=== PATIENT | male | born 1955 | race Caucasian/White ===

== ENCOUNTER 2023-05-13 12:27 | Outpatient (REF) | payer MEDICARE, BC, SELFPAY ==
[2023-05-13 17:42] LABS: MANUAL DIFF FLAG NO
[2023-05-13 18:09] LABS: Basophils Absolute Auto 0.1 X10*3/uL (0.0-0.2); Basophils Percent Auto 0.9 % (0-2); Eosinophils Absolute Auto 0.1 X10*3/uL (0.0-0.4); Eosinophils Percent Auto 1.8 % (0-4); Hematocrit 45.7 % (42.0-52.0); Hemoglobin 15.6 g/dl (14.0-18.0); Imm Gran Abs Auto 0.03 X10*3/uL (0.00-0.03); Imm Gran Pct Auto 0.4 % (0.0-0.4); Lymphocytes Absolute Auto 1.3 X10*3/uL (1.2-4.9); Lymphocytes Percent Auto 16.1 % (20-40); Mean Corpuscular HGB Conc 34.1 g/dl (31.0-36.0); Mean Corpuscular Hemoglobin 31.9 pg (27.0-33.0); Mean Corpuscular Volume 93.5 fL (80.0-98.0); Monocytes Absolute Auto 0.6 X10*3/uL (0.1-1.2); Neutrophils Absolute Auto 5.8 x10*3/uL (2.0-8.3); Neutrophils Percent Auto 73.8 % (45-73); Platelet Count 218 X10*3/uL (160-400); Red Blood Count 4.89 X10*6/uL (4.60-5.80); Red Cell Distribution Width 13.3 % (11.0-16.0); White Blood Count 7.8 X10*3/uL (4.8-10.8)
[2023-05-13 18:51] LABS: Alanine Aminotransferase 19 U/L (0-40); Albumin Level 4.2 g/dL (3.5-5.0); Alkaline Phosphatase 87 U/L (39-117); Anion Gap 16 (12-20); Aspartate Amino Transferase 18 U/L (5-37); Bilirubin Total 0.6 mg/dL (0.0-1.0); Blood Urea Nitrogen 13 mg/dL (9-16); Carbon Dioxide 24 mmol/L (22-29); Chloride 104 mmol/L (96-108); Cholesterol 145 mg/dL; Estimated Glomerular Filt Rate > 60; Glucose Random 96 mg/dL (60-115); HDL Cholesterol 59 mg/dL; LDL Cholesterol Calculated 69 mg/dl; Potassium 4.2 mmol/L (3.3-5.1); Sodium 140 mmol/L (135-145); Total Protein 7.2 g/dL (6.5-8.0); Triglycerides 85 mg/dL
[2023-05-13 18:53] LABS: Thyroid Stimulating Hormone 2.22 uIU/mL (0.32-4.0)
[2023-05-13 19:28] LABS: Prostate Specific Antigen 0.49 ng/mL (<0.05-4.0); Vitamin B12 1101 pg/mL (200-900)
[2023-05-20 10:48] LABS: Testosterone, Total 294 ng/dL (250-1100)
== END 2023-05-13 12:28 | disposition home or self-care (01) ==
LOC: HO.MANLDS 12:27
PROVIDERS: Visit Provider Internal Medicine
DX: Z12.5 Encounter for screening for malignant neoplasm of prostate (principal); E78.00 Pure hypercholesterolemia, unspecified; R53.83 Other fatigue
CPT/HCPCS: 36415; 80053; 80061; 82607; 84153; 84403; 84443; 85025

== ENCOUNTER 2024-06-10 14:16 | Outpatient (REF) | payer MEDICARE, BC, SELFPAY ==
[2024-06-10 17:58] LABS: Anion Gap 14 (12-20); Blood Urea Nitrogen 14 mg/dL (9-16); Carbon Dioxide 26 mmol/L (22-29); Chloride 102 mmol/L (96-108); Estimated Glomerular Filt Rate > 60; Glucose Random 107 mg/dL (60-115); Potassium 3.8 mmol/L (3.3-5.1); Sodium 138 mmol/L (135-145)
== END 2024-06-10 14:17 | disposition home or self-care (01) ==
LOC: HO.MANLDS 14:16
PROVIDERS: Visit Provider Internal Medicine
DX: R60.0 Localized edema (principal)
CPT/HCPCS: 36415; 80048

== ENCOUNTER 2025-05-11 09:01 | Outpatient (REF) | payer MEDICARE, BC, SELFPAY ==
--- OUTSIDE RECORDS SUMMARY | 2025-05-11 09:18 | XMS_ITS | Data Portability ---
Author Organization [facility], Telehealth Patient Home Address [address] [place] [address] Assessment Encounter Date Assessment Date Assessment LastModified by Organization Details LastModified Time 06/10/2023 06/10/2023 [id number] [place] [id number] (STAFF DESIGN ENGINEER) [facility] MOD[facility] MUST MEET 2 OUT OF 3 ELEMENTS: PROBLEMS, DATA OR RISK ELEMENT 1: PROBLEMS ADDRESSED 1 OR MORE CHRONIC ILLNESS WITH EXACERBATION OR 2 OR MORE STABLE CHRONIC ILLNESSES OR 1 UNDIAGNOSED NEW PROBLEM OR 1 ACUTE ILLNESS W/SYMPTOMS OR 1 ACUTE COMPLICATED INJURY ELEMENT 2: DATA MUST MEET 1 OF 3 CATEGORIES CATEGORY 1: REVIEW OF PRIOR EXTERNAL NOTES, REVIEW OF RESULTS, ORDERING OF EACH TEST, ASSESSMENT REQUIRING INDEPENDENT HISTORIAN OR CATEGORY 2: INDEPENDENT INTERPRETATION OF TESTS BY ANOTHER PHYSICIAN OR SPECIALIST OR CATEGORY 3: DISCUSSION OF MGT OR TEST INTERPRETATION W/EXTERNAL PHYSICIAN OR SPECIALIST ELEMENT 3: RISK RISK OF COMPLICATIONS AND/OR MORBIDITY OR MORTALITY OF PATIENT MANAGEMENT PROVIDER MUST THOROUGHLY DOCUMENT EACH ELEMENT THAT IS COVERED Not available 06/10/2023 15:57:09 06/09/2024 06/09/2024 [id number] [place] [id number] (STAFF DESIGN ENGINEER) [facility] MODER[facility] MUST MEET 2 OUT OF 3 ELEMENTS: PROBLEMS, DATA OR RISK ELEMENT 1: PROBLEMS ADDRESSED 1 OR MORE CHRONIC ILLNESS WITH EXACERBATION OR 2 OR MORE STABLE CHRONIC ILLNESSES OR 1 UNDIAGNOSED NEW PROBLEM OR 1 ACUTE ILLNESS W/SYMPTOMS OR 1 ACUTE COMPLICATED INJURY ELEMENT 2: DATA MUST MEET 1 OF 3 CATEGORIES CATEGORY 1: REVIEW OF PRIOR EXTERNAL NOTES, REVIEW OF RESULTS, ORDERING OF EACH TEST, ASSESSMENT REQUIRING INDEPENDENT HISTORIAN OR CATEGORY 2: INDEPENDENT INTERPRETATION OF TESTS BY ANOTHER PHYSICIAN OR SPECIALIST OR CATEGORY 3: DISCUSSION OF MGT OR TEST INTERPRETATION W/EXTERNAL PHYSICIAN OR SPECIALIST ELEMENT 3: RISK RISK OF COMPLICATIONS AND/OR MORBIDITY OR MORTALITY OF PATIENT MANAGEMENT PROVIDER MUST THOROUGHLY DOCUMENT EACH ELEMENT THAT IS COVERED Not available 06/09/2024 15:09:52 07/15/2024 07/15/2024 [id number] [place] [id number] (STAFF DESIGN ENGINEER) [facility] MODERATE MUST MEET 2 OUT OF 3 ELEMENTS: PROBLEMS, DATA OR RISK ELEMENT 1: PROBLEMS ADDRESSED 1 OR MORE CHRONIC ILLNESS WITH EXACERBATION OR 2 OR MORE STABLE CHRONIC ILLNESSES OR 1 UNDIAGNOSED NEW PROBLEM OR 1 ACUTE ILLNESS W/SYMPTOMS OR 1 ACUTE COMPLICATED INJURY ELEMENT 2: DATA MUST MEET 1 OF 3 CATEGORIES CATEGORY 1: REVIEW OF PRIOR EXTERNAL NOTES, REVIEW OF RESULTS, ORDERING OF EACH TEST, ASSESSMENT REQUIRING INDEPENDENT HISTORIAN OR CATEGORY 2: INDEPENDENT INTERPRETATION OF TESTS BY ANOTHER PHYSICIAN OR SPECIALIST OR CATEGORY 3: DISCUSSION OF MGT OR TEST INTERPRETATION W/EXTERNAL PHYSICIAN OR SPECIALIST ELEMENT 3: RISK RISK OF COMPLICATIONS AND/OR MORBIDITY OR MORTALITY OF PATIENT MANAGEMENT PROVIDER MUST THOROUGHLY DOCUMENT EACH ELEMENT THAT IS COVERED Not available 07/15/2024 11:01:00 08/17/2024 08/17/2024 [id number] [place] [id number] (STAFF DESIGN ENGINEER) : MDM LOW MUST MEET 2 OF 3 ELEMENTS: PROBLEMS, DATA OR RISK ELEMENT 1: PROBLEMS ADDRESSED (LOW): 2 OR MORE SELF-LIMITED OR MINOR PROBLEMS OR 1 STABLE CHRONIC ILLNESS OR 1 ACUTE UNCOMPLICATED ILLNESS OR INJURY ELEMENT 2: DATA TO BE REVISED AND ANALYZED (LOW) MUST MEET 1 OF 2 CATEGORIES: CATEGORY 1. REVIEW OF PRIOR EXTERNAL NOTES/RESULTS, ORDERING OF TEST(S) CATEGORY 2. ASSESSMENT REQUIRING INDEPENDENT HISTORIAN(S) INCLUDE WHO THE HISTORIAN IS AND RELATION TO PT AND WHY PT IS UNABLE TO GIVE COMPLETE HISTORY ELEMENT 3: RISK (LOW) RISK OF COMPLICATIONS AND/OR MORBIDITY OR MORTALITY OF PATIENT MANAGEMENT PROVIDER MUST THOROUGHLY DOCUMENT ALL OF THE ELEMENTS COVERED Not available 08/17/2024 12:39:44 05/05/2025 05/05/2025 [id number] [place] [id number] (STAFF DESIGN ENGINEER) [facility] MODERATE MUST MEET 2 OUT OF 3 ELEMENTS: PROBLEMS, DATA OR RISK ELEMENT 1: PROBLEMS ADDRESSED 1 OR MORE CHRONIC ILLNESS WITH EXACERBATION OR 2 OR MORE STABLE CHRONIC ILLNESSES OR 1 UNDIAGNOSED NEW PROBLEM OR 1 ACUTE ILLNESS W/SYMPTOMS OR 1 ACUTE COMPLICATED INJURY ELEMENT 2: DATA MUST MEET 1 OF 3 CATEGORIES CATEGORY 1: REVIEW OF PRIOR EXTERNAL NOTES, REVIEW OF RESULTS, ORDERING OF EACH TEST, ASSESSMENT REQUIRING INDEPENDENT HISTORIAN OR CATEGORY 2: INDEPENDENT INTERPRETATION OF TESTS BY ANOTHER PHYSICIAN OR SPECIALIST OR CATEGORY 3: DISCUSSION OF MGT OR TEST INTERPRETATION W/EXTERNAL PHYSICIAN OR SPECIALIST ELEMENT 3: RISK RISK OF COMPLICATIONS AND/OR MORBIDITY OR MORTALITY OF PATIENT MANAGEMENT PROVIDER MUST THOROUGHLY DOCUMENT EACH ELEMENT THAT IS COVERED Not available 05/05/2025 11:24:35 Plan of Treatment Reminders Order Date Submit Date Provider Last Modified By Organization Details Last Modified Time Details Appointments None recorded. Lab TSH, serum or plasma 2024 025 [facility], [address] [place] [address], [address], 5 11:29:55 vitamin B12, serum 2024 025 [facility], [address] [place] [address], [address], 5 11:29:54 testostero ne, total, serum 2024 025 [facility], [address] [place] [address], [address], 5 11:29:55 CBC w/ auto diff 2024 025 [facility], [address] [place] [address], [address], 5 11:29:55 vitamin D, 25-hydroxy , total, serum 2024 025 [facility], [address] [place] [address], [address], 5 11:29:54 BMP, serum or plasma 2023 024 [facility], [address] [place] [address], [address], 4 11:15:52 Referral None recorded. Procedures nerve conduction study/EMG, lower extremity (PROC) 2023 024 cleopatra Garcia MD, [address] [place] [address], [address], 08:36:20 Surgeries None recorded. Imaging XR, lumbosacra l spine, 2 or 3 view 2023 WADE Not available 08:01:53 Medication Orders furosemide 40 mg tablet 2023 [facility] #[id number], [address], [place], [id number], 15:18:39 metoprolol succinate ER 50 mg tablet,ext ended release 24 hr 2022 [facility] #[id number], [address], [place], [id number], 14:56:24 Patient TargetsNo targets recorded. Patient Instructions Encounter Date Encounter Id Patient Instructions Last Modified By Organization Details Last Modified Time 06/10/2023 [id number] pulse oximetry* WADE Not available 06/10/2023 16:20:09 06/09/2024 [id number] leg and ankle edema: care instructions Not available 06/09/2024 15:13:10 back care and preventing injuries: care instructions Not available 06/09/2024 15:13:10 getting back to normal after low back pain: care instructions Not available 06/09/2024 15:13:10 learning about relief for back pain Not available 06/09/2024 15:13:11 07/15/2024 [id number] low back arthritis: exercises Not available 07/15/2024 11:09:19 pulse oximetry* Not available 07/15/2024 11:09:23 Reason for Referral None Reported. Results Created Date Observation Date Name Description Value Unit Range Abnormal Flag Note LastModifiedBy Organization Detail LastModifiedTime 07/15/20 24 07/15/2024 pulse oxime try* Result 96% Not Available [facility] [address], [place], [address], 07/13/2024 12:09:44 05/27/20 23 05/27/2023 XR, chest , 2 view No observ ation record ed. [facility] [address], [place], [address], 05/27/2023 23:29:10 05/27/20 23 05/27/2023 US, abdom inal aorta No observ ation record ed. [facility] [address], [place], [address], 05/27/2023 23:29:10 06/11/20 24 06/10/2024 XR, lumbo sacra l spine , 2 or 3 view No observ ation record ed. [address], [address], 06/12/2024 08:37:14 07/08/20 24 07/07/2024 MRI, lumba r spine , w/o contr ast No observ ation record ed. [email or web address] [place] [address], [place], [address], 07/09/2024 22:14:43 08/06/20 24 08/05/2024 nerve condu ction study /EMG, lower extre mity (PROC ) No observ ation record ed. [email or web address] Not Available 2023 15:13:51 Result Notes None recorded. Problems Name Problem SNOMED Code Status Onset Date Resolution Date Notes Provider Name and Address Organization Details Recorded Time Ischemic heart disease 776603551 Active 2017 5 stents total Zaire Castillo, [address], [place], [address], [place] [facility] 3 16:11:33 Hypercho lesterol emia 33131921 Active [address] [facility] 8 08:30:52 Hyperten sive disorder 44103914 Active [address] [facility] 8 08:30:56 Gastroes ophageal reflux disease 171813114 [facility] [address] [facility] 8 08:30:59 Hiatal hernia 54395680 [facility] [address] [facility] 8 08:31:03 Obstruct keeley sleep apnea syndrome 69618305 Completed 201705/09/2021 CPAP 2007 Zaire Castillo, DO [address] [place] [address], [address], [facility] 1 14:49:36 Toxic inhalati on injury 087219141 Active 2017 maikel eason, [address] 8 08:31:39 Cough 35415227 Active 2022 Zaire Castillo, DO [address] [place] [address], [address], [facility] 3 16:08:50 Fatigue 30813404 Active 2022 Zaire Castillo DO [address] [place] [address], [address], [facility] 5 11:27:09 Edema of lower extremit y 019144377 Active 2023 Zaire Castillo, [address] [place] [address], [address], [facility] 4 15:09:33 Low back pain 358262441 Active 2023 Zaire Castillo DO [address] [place] [address], [address], [facility] 4 15:12:18 Weakness of bilatera l lower limb Active 2023 Zaire Castillo DO [address] [place] [address], [address], [facility] 4 08:37:37 Degenera tion of lumbar interver tebral disc 08679106 Active 2023 Zaire Shanks Anna, DO [address] [place], [address], [facility] 5 11:23:06 Lumbar spondylo sis with myelopat hy 68037580 Active 2023 Zaire Walkerwayne, DO [address] [place], [address], [facility] 4 11:03:23 Lumbar radiculo aidee 405096982 Active 2023 Zaire Shanks Anna, DO [address] [place], [address], [facility] 4 12:37:34 Aneurysm of ascendin g aorta 341479214 Active 2024 4.2 cm Zaire Dimitris Anna, DO [address] [place] [address], [address], [facility] 5 11:18:05 Peripher al sensory neuropat 501497147 Active 2024 Zaire Walkerwayne, DO [address] [place] [address], [address], [facility] 5 21:33:04 Problem Notes None recorded. Medical Equipment None Reported. Allergies No known drug allergies Medications Name Sig Start Date Stop Date Status Note LastModified by Organization Details LastModified Time amoxicillin 500 mg capsule TAKE ONE CAPSULE BY MOUTH THREE TIMES A DAY UNTIL GONE 05/07 completed Not Available Not Available Not Available furosemide 40 mg tablet TAKE 1 TABLET BY MOUTH EVERY DAY active Not Available Not Available No t Available promethazin e-DM 6.25 mg-15 mg/5 mL oral syrup TAKE 5 ML BY MOUTH AT BEDTIME FOR 7 DAYS active Not Available Not Available No t Available gabapentin 600 mg tablet TAKE 1 TABLET BY MOUTH TWICE DAILY 05/05 completed Not Available Not Available Not Available doxycycline hyclate 100 mg capsule TAKE 1 CAPSULE BY MOUTH TWICE DAILY FOR 10 DAYS active Not Available Not Available No t Available cetirizine 10 mg tablet TAKE 1 TABLET BY MOUTH DAILY NEEDED FOR ALLERGIES FOR UP TO 30 DAYS. RECOMMEND TAKING IT IN THE MORNING NOT AT SAME TIME PROMETHAZ INE-DM. active Not Available Not Available No t Available ibuprofen 800 mg tablet TAKE ONE TABLET BY MOUTH EVERY 8 HOURS UNTIL FINISHED 05/07 completed Not Available Not Available Not Available tizanidine 4 mg tablet TAKE 1 TABLET BY MOUTH THREE TIMES DAILY NEEDED FOR MUSCLE SPASMS active Not Available Not Available No t Available benzonatate 200 mg capsule TAKE 1 CAPSULE BY MOUTH THREE TIMES DAILY FOR UP TO 10 DAYS NEEDED FOR COUGH active Not Available Not Available No t Available metoprolol succinate ER 50 mg tablet,exte nded release 24 hr TAKE 1 TABLET BY MOUTH EVERY DAY 06/09 completed Not Available Not Available Not Available hydrochloro thiazide 50 mg tablet TAKE 2 TABLETS BY MOUTH EVERY MORNING active Not Available Not Available No t Available hydrocodone 5 mg-acetamin ophen 325 mg tablet TAKE ONE TABLET BY MOUTH EVERY 4 TO 6 HOURS ONLY IN CASE OF SEVERE PAIN - DO NOT DRIVE IF TAKING THIS MEDICATIO N 05/07 completed Not Available Not Available Not Available isosorbide mononitrate ER 30 mg tablet,exte nded release 24 hr TAKE 1 TABLET BY MOUTH EVERY MORNING active Not Available Not Available No t Available penicillin V potassium 500 mg tablet 05/09 completed Not Available Not Available Not Available oxiconazole 1 % topical cream 05/09 completed Not Available Not Available Not Available clopidogrel 75 mg tablet TAKE 1 TABLET BY MOUTH DAILY active Not Available Not Available No t Available amlodipine 5 mg tablet TAKE 1 TABLET BY MOUTH TWICE DAILY active Not Available Not Available No t Available triamterene 37.5 mg-hydrochl orothiazide 25 mg capsule 05/09 completed Not Available Not Available Not Available triamcinolo ne acetonide 0.1 % topical cream 05/09 completed Not Available Not Available Not Available amoxicillin 875 mg tablet 07/18 completed Not Available Not Available Not Available fluorometho lone 0.1 % eye drops,suspe nsion SHAKE LIQUID AND INSTILL 1 DROP IN BOTH EYES TWICE DAILY FOR 1 WEEK AND DISCONTIN UE 05/07 completed Not Available Not Available Not Available gabapentin 300 mg capsule TAKE 1 CAPSULE BY MOUTH THREE TIMES DAILY 05/05 completed Not Available Not Available Not Available hydrochloro thiazide 25 mg tablet TAKE 1 TABLET BY MOUTH EVERY MORNING 06/09 completed Not Available Not Available Not Available metoprolol succinate ER 25 mg tablet,exte nded release 24 hr TAKE 1 TABLET BY MOUTH DAILY active Not Available Not Available No t Available methylpredn isolone 4 mg tablets in a dose pack FOLLOW PACKAGE DIRECTION S 06/09 completed Not Available Not Available Not Available albuterol sulfate HFA 90 mcg/actuati on aerosol inhaler INHALE 2 PUFFS INTO THE LUNGS EVERY 4 HOURS NEEDED FOR WHEEZING active Not Available Not Available No t Available diazepam 5 mg tablet TAKE 1 TABLET BY MOUTH 60 MINUTES BEFORE PROCEDURE NEEDED FOR ANXIETY. MAY REPEAT 1 TIME active Not Available Not Available No t Available amoxicillin 875 mg-potassiu m clavulanate 125 mg tablet TAKE 1 TABLET BY MOUTH TWICE DAILY CONSUME WITH FOOD AND A DAILY PROBIOTIC 06/09 completed Not Available Not Available Not Available ezetimibe 10 mg tablet TK 1 T PO Q NIGHT active Not Available Not Available No t Available rosuvastati n 40 mg tablet 07/18 completed Not Available Not Available Not Available pregabalin 75 mg capsule Take 1 capsule twice a day by oral route for 30 days. 2024 active Not Available Not Available Not Avai lable Repatha SureClick 140 mg/mL subcutaneou s pen injector ADMINISTE R 1 ML UNDER THE SKIN EVERY 14 DAYS active Not Available Not Available No t Available Vitals Date Recorded Body height Body mass index (BMI) Body weight Heart rate Oxygen saturation Oxygen saturation in Arterial blood by Pulse oximetry Systolic And Diastolic Provider Name and Address Organization Details Last Updated DateTime 5 171.45 cm 38.1 kg/m2 433572. 32 g 83 /min 98 % 98 % 130/78 mm[Hg] Samina Obrien [facility] 5 11:04:02 Date Recorded Body height Body mass index (BMI) Body weight Heart rate Oxygen saturation Oxygen saturation in Arterial blood by Pulse oximetry Systolic And Diastolic Provider Name and Address Organization Details Last Updated DateTime 4 171.45 cm 37.8 kg/m2 713526. 13 g 80 /min 98 % 98 % 128/76 mm[Hg] Zaire Castillo, DO [address] [place], [address] , [facility] 4 14:57:59 Date Recorded Body height Body mass index (BMI) Body weight Heart rate Oxygen saturation Oxygen saturation in Arterial blood by Pulse oximetry Systolic And Diastolic Provider Name and Address Organization Details Last Updated DateTime 3 171.45 cm 38.9 kg/m2 783510. 28 g 97 /min 86 % 86 % 160/90 mm[Hg] Saminaluis felipe Obrien [facility] 3 15:31:12 Date Recorded Body height Body mass index (BMI) Body weight Heart rate Oxygen saturation Oxygen saturation in Arterial blood by Pulse oximetry Systolic And Diastolic Provider Name and Address Organization Details Last Updated DateTime 4 171.45 cm 37.8 kg/m2 167768. 13 g 56 /min 96 % 96 % 124/70 mm[Hg] Simonesandrita Powers [facility] 4 10:27:42 Date Recorded Body height Body mass index (BMI) Body weight Heart rate Oxygen saturation Oxygen saturation in Arterial blood by Pulse oximetry Systolic And Diastolic Provider Name and Address Organization Details Last Updated DateTime 4 171.45 cm 38.1 kg/m2 672380. 32 g 71 /min 98 % 98 % 126/70 mm[Hg] Zaire Castillo, DO [address] [place], [address] 4 12:22:57 Social History Question Answer Notes LastModified by Organizat ion Details LastModified Time Tobacco Smoking Status Former Smoker Not Available [facility] 08/30/2020 03:36:23 What Was The Date Of Your Most Recent Tobacco Screening? 05/05/2025 Information not available 05/05/2025 Sex: Unknown Functional Status Question Answer Note LastModified by Organization D etails LastModified Time Do you or have you ever used any other forms of tobacco or nicotine? No Information not available 05/07/2023 Mental Status None recorded. Family History Nothing Reported. Medical History No medical history recorded. Immunizations Vaccine Type Date Status Note Provider Nam e and Address Organization Details Recorded Time COVID-19, mRNA, LNP-S, PF, 100 mcg/0.5mL dose or 50 mcg/0.25mL dose 03/21/2021 completed Marie Mata [facility] 05/09/2021 14:21:46 Past Encounters Encounter ID Performer Location Encounter Start Date Encounter Closed Date Diagnosis/Indication Diagnosis SNOMED-CT Code Diagnosis ICD10 Code Diagnosis Note [id number] Zaire Castillo [facility] [address], [place] [address] 07/18/2018 10:40:08 07/18/2018 15:44:34 Hypertensive disorder 45723504 I10 stable no change in meds Ischemic h eart disease 502063075 I25.9 quiet but knows if he does too much he will have some discomfort states will have eval when gets back to [facility] Hypercholesterolemia 136 29622 E78.00 had stopped statins as it caused a rash Gastroesop hageal reflux disease 580330212 K21.9 quiet since wgt loss [id number] Zaire Castillo [facility] [address], [place] [address] 05/09/2021 14:07:56 05/09/2021 14:59:00 Hypertensive disorder 03565611 I10 stable no change in meds Hypercholesterolemia 136 83015 E78.00 had stopped statins as it caused a rash Gastroesop hageal reflux disease 271312794 K21.9 quiet since wgt loss Obstructiv e sleep apnea syndrome 97954895 G47.33 not using cpap but wgt loss helped [id number] Zaire Castillo [facility] [address],[place] [address] 05/07/2023 15:27:03 05/07/2023 16:20:11 Hypertensive disorder 09570875 I10 stable no change in meds Hypercholesterolemia 136 36825 E78.00 had stopped statins as it caused a rash Gastroesop hageal reflux disease 488979176 K21.9 quiet since wgt loss Advance care planning 71 4235282 Z71.89 utd Abdominal aortic aneurysm screening 916509725 Z13.6 Cough 13395807 R05.9 Fatigue 85855538 R53.83 [id number] Zaire Castillo [facility] [address],[place] [facility] [place] [address] 06/10/2023 15:23:14 06/10/2023 16:06:43 Hypercholesterolemia 88801456 E78.00 had stopped statins as it caused a rash Hypertensive disorder 38 648199 I10 stable no change in meds Ischemic h eart disease 535999988 I25.9 quiet but knows if he does too much he will have some discomfort states will have eval when gets back to [facility] [id number] Zaire Castillo [facility] [address], [place] [address] 06/09/2024 14:40:57 06/09/2024 16:08:42 Depression screening 676330213 Z13.31 neg Hypertensive disorder 38 417226 I10 stable Ischemic h eart disease 825739382 I25.9 no cp feels fine no sob will be seeing cardio FLA Edema of l ower extremity 084670372 R60.0 stop the hctz and start furosemide 40 Low back pain 208246917 M54.50 sound like it might be a stenosis for the bilat nature of the pain [id number] Zaire Castillo [facility] [address] [place] [address] 07/15/2024 10:18:05 07/15/2024 11:16:33 Hypercholesterolemia 62431039 E78.00 had stopped statins as it caused a rash Ischemic h eart disease 115475664 I25.9 no cp feels fine no sob will be seeing cardio FLA Degenerati on of lumbar intervertebral disc 90525142 M51.36 Lumbar spo ndylosis with myelopathy 83821162 M47.16 [id number] Zaire Castillo [facility] [address], [place] [address] 08/17/2024 12:00:19 08/17/2024 13:36:13 Lumbar radiculopathy 667438340 M54.16 due to protrusion at L5 S! will need epidural inj or actual removal of offending herniation [id number] Zaire Castillo [facility] [address], [place] [address] 05/05/2025 10:56:38 05/05/2025 12:02:43 Hypercholesterolemia 10133349 E78.00 had stopped statins as it caused a rash Ischemic h eart disease 395852702 I25.9 no cp feels fine no sob will be seeing cardio FLA Depression screening 171 153207 Z13.31 neg Degenerati on of lumbar intervertebral disc 62433938 M51.360 markedly better after radioablat ion and doing goodtold to stop the gabapentin as he is having excess fatigue Aneurysm o f ascending aorta 017107276 I71.21 no issues so far Fatigue 78005392 R53.82 will stop the gabapentin chk lab told he needs to lose weight and cut down on etoh Health Concerns Section Related Observation LastModified by Organization Detai ls LastModified Time None Recorded Concern Status LastModified by Organization Details LastModified Time None Recorded Advance Directives Directive None Recorded Payers Insurance Date Sequence Insurance Name Policy Number Policy Whitehead Covered Member ID Whitehead Member ID Guarantor Name 04/30/2025 2 [facility] ([facility] [id number] Jacky Rivera [id number] Jacky Rivera 04/30/2025 1 [place] [employer] Jacky Rivera [id number] Jacky Rivera Notes Date Note Type Note Provider Name and Address Organization Details Recorded Time 06/10/20 23 text/htm l Care Management - HypertensionReported bypatient.Self Care:not under emotional stress Severity:symptoms are improving; does not interfere with daily activities Associated Symptoms:no dizziness; no lightheadedness; no chest pain; no shortness of breath; no palpitations; no edema; no calf muscle cramps; no blurred vision; no confusion; no headaches; no fatigue here for rechk denies any cpno sobstill with a cough but wth new pillows and cleaned mattress he got betterhe is using cpap successfully Zaire Castillo, DO [address] [facility], [place], [address], [facility] 06/10/2023 16:00:37 06/09/20 24 text/htm l here for rechkrelates having pain in his karen legs such that he cant stand for more than 10 min without having pain down his legs and back where he has to sit down then it gets better Zaire Castillo DO [address] [place], [address], [facility] 06/09/2024 15:18:47 07/15/20 24 text/htm l Care Management - HypertensionReported bypatient.Self Care:not under emotional stress Severity:symptoms are improving; does not interfere with daily activities Associated Symptoms:no dizziness; no lightheadedness; no chest pain; no shortness of breath; no palpitations; no edema; no calf muscle cramps; no blurred vision; no confusion; no headaches; no fatigue here for rechk and is having a great deal of pain in the low backMRI shows djd and foraminalnarrowingnoted to have some leg swelling today but only minor aZire Castillo DO [address] [place], [address], [facility] 07/15/2024 11:10:45 08/17/20 24 text/htm l here for rechk relates that he is still having issues as discussedwe are here to review the nct emg Zaire Castillo DO [address] [place], [address], [facility] 08/17/2024 12:41:36 05/05/20 25 text/htm l Care Management - HyperlipidemiaReported bypatient.Control:usually well controlled; improving; at goal Complications:no coronary artery disease; no heart attack; no cardiovascular disease; no pancreatitis; no stroke here for rollow up had seen a neurosurg who said he was nonoperable went t IR who did ablation of the right and left L5 nerve roots Zaire Castillo DO [address] [place], [address], [facility] 05/05/2025 11:29:28
--- OUTSIDE RECORDS SUMMARY | 2025-05-11 09:18 | XMS_ITS | Encounter Summary ---
Author Organization [facility]. Address [address] [facility] [place] [address] Care Team Providers Care Telephone Clerk Telegraph Office Name Role Phone Idania White M.D. Primary Care Provider [phone] River Batista M.D. Unavailable [phone] Frandy Garland M.D. Unavailable [phone] Reason for Visit * Reason Comments Medication Refill Encounter Details Date Type Department Care Team (Late st Contact Info) Description 06/09/2021 Refill Heart [place] at [facility] [address] [address] [place] [address] Molly Gottlieb, D.OLyndsay Essential hypertension Social History Tobacco Use Types Packs/Day Years Used Date Smoking Tobacco: Former Cigarettes Smokeless Tobacco: Never Comments:quit 1974 Alcohol Use Standard Drinks/Week Comments Yes 7 (1 standard drink = 0.6 oz pur e alcohol) one drink daily 3-4 PHQ-2 Answer Date Recorded PHQ 2 Score 0 03/21/2021 Sex and Gender Information Value Date Recorded Sex Assigned at Not on file Legal Sex Male 9:52 AM EDT Gender Identity Not on file Sexual Orientation Not on file 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 Answer Date of Assessment Author No 03/21/2021 11:19 AM EDT Willow Chavez MA * Is the patient blind or have serious difficulty seeing even when wearing glasses? Answer Date of Assessment Author No 03/21/2021 11:19 AM EDT Willow Chavez MA * Does the patient have serious difficulty concentrating, remembering, or making decisions? Answer Date of Assessment Author No 03/21/2021 11:19 AM EDT Willow Chavez MA * Does the patient have serious difficulty walking or climbing stairs? Answer Date of Assessment Author No 03/21/2021 11:19 AM EDT Willow Chavez MA * Does the patient have difficulty dressing or bathing? Answer Date of Assessment Author No 03/21/2021 11:19 AM Willow Modi MA documented as of this encounter Mental Status * Does the patient have difficulty doing errands alone? Answer Entry Date Author No 03/21/2021 11:19 AM Willow Modi MA documented in this encounter Miscellaneous Notes * Telephone Encounter - Ge De Luna LPN - 06/09/2021 9:40 AM EDT Medication requested Metoprolol, Imdur, Hctz Last Refill Date: 08/30/20 Last Office Visit: 09/19/20 Recommended follow-up office visit: 6 months Next Scheduled Office Visit: None Primary Clinician Oncology: Dr. Batista Pharmacy Info updated? yes Message sent to schedule 6 month follow up OV documented in this encounter Plan of Treatment Upcoming Encounters Date Type Department Care Team (Late st Contact Info) Description 09/10/2025 9:00 AM EST Appointment [place] [facility] [address] [place] [address] Frandy Garland M.D. [address] [place] [address], [address] [place] [address] 09/13/2025 9:00 AM EST Appointment Pain Management at [address] [place] [address] Leonel Jay D.O. [address] [facility], [address] [place], [place] [id number] 12/29/2025 8:00 AM EST Office Visit Sleep Medicine at [address] [place] [address] Erica Álvarez, OIL SPRAYING MACHINE OPERATOR [address], [address] [place] [address] documented as of this encounter Visit Diagnoses Diagnosis Essential hypertension documented in this encounter Care Teams Telephone Clerk Telegraph Office Relationship Specialty Start Date End Date Idania White M.D. [address] [facility], [address] [place] [address] PCP - General Family Medicine 08/28/17 River Batista M.D. [address] [address] [place], [address] [place], [place] [id number] Clinician Oncology Cardiology 09/19/20 07/24/23 Frandy Garland M.D. [address] [place] [address], [address] [place] [address] Clinician Oncology Cardiology 07/25/23 documented as of this encounter
[2025-05-11 13:51] LABS: MANUAL DIFF FLAG NO
[2025-05-11 14:05] LABS: Hematocrit 43.1 % (42.0-52.0); Hemoglobin 14.6 g/dl (14.0-18.0); Imm Gran Abs Auto 0.05 X10*3/uL (0.00-0.03); Imm Gran Pct Auto 0.7 % (0.0-0.4); Lymphocytes Absolute Auto 1.2 X10*3/uL (1.2-4.9); Mean Corpuscular HGB Conc 33.9 g/dl (31.0-36.0); Mean Corpuscular Hemoglobin 31.9 pg (27.0-33.0); Mean Corpuscular Volume 94.1 fL (80.0-98.0); NRBC Abs Auto 0.000 X10*3/uL (0.0-0.012); NRBC Pct Auto 0.0 /100WBC (0.0-0.2); Platelet Count 201 X10*3/uL (160-400); Red Blood Count 4.58 X10*6/uL (4.60-5.80); White Blood Count 7.3 X10*3/uL (4.8-10.8)
[2025-05-11 14:36] LABS: Thyroid Stimulating Hormone 2.36 uIU/mL (0.32-4.0)
[2025-05-11 14:45] LABS: Vitamin B12 408 pg/mL (200-900)
== END 2025-05-11 09:02 | disposition home or self-care (01) ==
LOC: HO.MANLDS 09:01
PROVIDERS: Visit Provider Internal Medicine
DX: R53.82 Chronic fatigue, unspecified (principal)
CPT/HCPCS: 36415; 82306; 82607; 84403; 84443; 85025

== ENCOUNTER 2025-06-08 11:58 | Outpatient (REF) | payer MEDICARE, BC, SELFPAY ==
--- OUTSIDE RECORDS SUMMARY | 2025-06-08 12:54 | XMS_ITS | Encounter Summary ---
Author Organization [facility] Address [address] [place] [id number] Phone Care Team Providers Care Strategic Procurement Manager Name Role Phone Zaire Castillo DO Primary Care Provider [phone] Reason for Referral * MRI/CAT Scan - Closed Specialty Diagnoses / Procedures Referred By Chey carson Referred To Contact Radiology Diagnoses Muscle weakness (generalized) Procedures MRI Lumbar Spine Zaire Castillo DO Phone: tel: fax: [email or web address] Referral ID Status Reason Start Date Expiration Date Visits Re quested Visits Authorized [id number] Closed 06/12/2024 06/12/2025 1 1 Encounter Details Date Type Department Care Team (Late st Contact Info) Description 06/12/2024 Transcribe Orders Virtual Department [address] [place] [address] Zaire Castillo DO [address] [place] [address] [email or web address] Muscle weakness (generalized) (Primary Dx) Social History Tobacco Use Types Packs/Day Years Used Date Smoking Tobacco: Never Smokeless Tobacco: Never Alcohol Use Standard Drinks/Week Comments Never 0 (1 standard drink = 0.6 oz pur e alcohol) Education Answer Date Recorded Are you interested in more education? Not on vinay e 02/22/2023 Are you concerned about learning? Not on file 02/22/2023 No 02/22/2023 No 02/22/2023 Digital Access Answer Date Recorded No 03/25/2023 No 03/25/2023 Reliable internet access at home? Not on file 03/25/2023 Device with a working camera? Not on file Sex and Gender Information Value Date Recorded Sex Assigned at Not on file Legal Sex Male 9:56 PM EDT Gender Identity Not on file Sexual Orientation Not on file documented as of this encounter Plan of Treatment Not on file documented as of this encounter Results * MRI LUMBAR SPINE (NEURO) WITHOUT CONTRAST (07/07/2024 7:06 AM EDT) Anatomical Region Laterality Modality L-spine Magnetic Resonan ce 07/08/2024 3:17 PM EDT Impressions 07/08/2024 4:03 PM EDT 1. Degenerative disc disease and facet joint arthropathy at multiple levels, without significant canal stenosis. 2. Multilevel foramina stenosis, moderate on the left at L5-S1. Narrative 07/08/2024 4:03 PM EDT MRI LUMBAR SPINE (NEURO) WITHOUT CONTRAST Referring clinician's provided indication for this examination in Epic: Outside Radiology Order; WEAKNESS OF BILATERAL LOWER LIMB TECHNIQUE: MRI LUMBAR SPINE (NEURO) WITHOUT CONTRAST Multi-sequence, multi-planar MRI of the lumbar spine was performed without intravenous contrast. COMPARISON: Lumbar spine radiograph June 10, 2024. FINDINGS: LUMBAR SPINE: Alignment and Vertebrae: Vertebral alignment and body heights are grossly preserved. No compression fracture. Marrow: No bone marrow replacing lesion. Discs and Endplates: Mild loss of disc height and signal from L1-L2 through L3- L4. Conus: Tip of the conus ends at L1. No cord compression. Soft Tissues: No prevertebral edema. Other Findings: None. Findings by level: T12-L1: No spinal or foraminal stenosis. L1-L2: Minimal disc bulging. No spinal or foraminal stenosis. L2-L3: Mild disc bulge with posterolateral osteophytic ridging. Mild facet joint arthropathy with a small amount of fluid in the facet joints. No spinal canal stenosis. Pjpz-ls-nksyabyj bilateral foraminal stenosis. L3-L4: Disc bulge and mild facet joint arthropathy. No significant spinal canal stenosis. Mild bilateral foraminal stenosis. L4-L5: Disc bulge and mild facet joint arthropathy. No spinal canal stenosis. Csut-fn-jcdpkloi right and mild left foraminal stenosis. L5-S1: Disc bulge with central disc protrusion. Facet joint arthropathy. No significant spinal canal stenosis. Moderate left and mild to moderate right foraminal stenosis. Procedure Note Jennifer Moon MD - 07/08/2024 MRI LUMBAR SPINE (NEURO) WITHOUT CONTRAST Referring clinician's provided indication for this examination in Epic:Outside Radiology Order; WEAKNESS OF BILATERAL LOWER LIMB TECHNIQUE: MRI LUMBAR SPINE (NEURO) WITHOUT CONTRAST Multi-sequence, multi-planar MRI of the lumbar spine was performed withoutintravenous contrast. COMPARISON: Lumbar spine radiograph June 10, 2024. FINDINGS: LUMBAR SPINE: Alignment and Vertebrae: Vertebral alignment and body heights are grosslypreserved. No compression fracture. Marrow: No bone marrow replacing lesion. Discs and Endplates: Mild loss of disc height and signal from L1-Y9yeevgwi L3- L4. Conus: Tip of the conus ends at L1. No cord compression. Soft Tissues: No prevertebral edema. Other Findings: None. Findings by level: T12-L1: No spinal or foraminal stenosis. L1-L2: Minimal disc bulging. No spinal or foraminal stenosis. L2-L3: Mild disc bulge with posterolateral osteophytic ridging. Mild facetjoint arthropathy with a small amount of fluid in the facet joints. Nospinal canal stenosis. Otbs-yo-yjrynhpr bilateral foraminal stenosis. L3-L4: Disc bulge and mild facet joint arthropathy. No significant spinalcanal stenosis. Mild bilateral foraminal stenosis. L4-L5: Disc bulge and mild facet joint arthropathy. No spinal canalstenosis. Dwte-ft-flswpoff right and mild left foraminal stenosis. L5-S1: Disc bulge with central disc protrusion. Facet joint arthropathy.No significant spinal canal stenosis. Moderate left and mild to moderateright foraminal stenosis. IMPRESSION: 1. Degenerative disc disease and facet joint arthropathy at multiplelevels, without significant canal stenosis. 2. Multilevel foramina stenosis, moderate on the left at L5-S1. us Zaire Castillo DO IMG MR XSPECIALTY Final Result documented in this encounter Visit Diagnoses Diagnosis Muscle weakness (generalized)- Primary Muscle weakness (generalized) documented in this encounter Care Teams Strategic Procurement Manager Relationship Specialty Start Date End Date Zaire Castillo DO [email or web address] PCP - General 08/15/17 documented as of this encounter Additional Source Comments The information contained in this document represents components of the legal health record. It is not the complete legal health record.[facility]
--- OUTSIDE RECORDS SUMMARY | 2025-06-08 12:54 | XMS_ITS | Encounter Summary ---
Author Organization [facility]. Address [address] [facility] [place] [address] Care Team Providers Care Material Handling Technician Name Role Phone Idania White M.D. Primary Care Provider [phone] River Batista M.D. Unavailable [phone] Frandy Garland M.D. Unavailable [phone] Reason for Visit * Reason Comments Medication Refill Encounter Details Date Type Department Care Team (Late st Contact Info) Description 06/09/2021 Refill Heart [place] at [facility] [address] [facility] [address] [place] [address] Molly Gottlieb, D.OLyndsay Essential hypertension [...] months Next Scheduled Office Visit: None Primary Paper Winder: Dr. Batista Pharmacy Info updated? yes Message sent to schedule 6 month follow up OV documented in this encounter Plan of Treatment Upcoming Encounters Date Type Department Care Team (Late st Contact Info) Description 09/10/2025 9:00 AM EST Appointment [place] [facility] [address] [place] [address] Frandy Garland M.D. [address] [place] [address], [address] [place] [address] 09/13/2025 9:00 AM EST Appointment Pain Management at [address] [place] [address] Leonel Jay D.O. [address] [facility], [address] [place], [place] [id number] 12/29/2025 8:00 AM EST Office Visit Sleep Medicine at [address] [place] [address] Erica Álvarez, COTTON WASHER [address], [address] [place] [address] documented as of this encounter Visit Diagnoses Diagnosis Essential hypertension documented in this encounter Care Teams Material Handling Technician Relationship Specialty Start Date End Date Idania White M.D. [address] [facility] [address] [place] [address] PCP - General Family Medicine 08/28/17 River Batista M.D. [address] [address] [place], [address] [place], [place] [id number] Paper Winder Cardiology 09/19/20 07/24/23 Frandy Garland M.D. [address] [place] [address], [address] [place] [address] Paper Winder Cardiology 07/25/23 documented as of this encounter
[2025-06-08 14:01] LABS: Alanine Aminotransferase 23 U/L (0-40); Albumin Level 4.1 g/dL (3.5-5.0); Alkaline Phosphatase 85 U/L (39-117); Anion Gap 15 (12-20); Aspartate Amino Transferase 33 U/L (5-37); Blood Urea Nitrogen 16 mg/dL (9-16); Calcium 9.1 mg/dL (8.4-10.2); Carbon Dioxide 25 mmol/L (22-29); Chloride 104 mmol/L (96-108); Cholesterol 162 mg/dL (<200); Estimated Glomerular Filt Rate > 60; HDL Cholesterol 48 mg/dL (>40); Potassium 3.9 mmol/L (3.3-5.1); Sodium 140 mmol/L (135-145); Total Protein 6.5 g/dL (6.5-8.0); Triglycerides 146 mg/dL (<150)
[2025-06-08 14:02] LABS: Prostate Specific Antigen 0.54 ng/mL (<0.05-4.0)
== END 2025-06-08 11:59 | disposition home or self-care (01) ==
LOC: HO.MANLDS 11:58
PROVIDERS: Visit Provider Internal Medicine
DX: Z12.5 Encounter for screening for malignant neoplasm of prostate (principal); E78.00 Pure hypercholesterolemia, unspecified
CPT/HCPCS: 36415; 80053; 80061; 84153